=== PATIENT | male | born 1985 | race Caucasian/White ===

== ENCOUNTER 2017-04-20 13:01 | Emergency (ER) | payer MEDICARE | END 2017-04-20 15:27 | disposition home or self-care (01) | LOC: D.ER 13:01 | DX: S61.441A Puncture wound with foreign body of right hand, initial encounter (principal); X58.XXXA Exposure to other specified factors, initial encounter; Y93.89 Activity, other specified; Y92.019 Unspecified place in single-family (private) house as the place of occurrence of the external cause; I10 Essential (primary) hypertension; F17.200 Nicotine dependence, unspecified, uncomplicated ==

== ENCOUNTER 2017-04-26 05:04 | Day surgery (SDC) | payer MEDICARE ==
[~2017-04-26] VITALS: Ht 175.3 cm; Wt 74.8 kg
--- NOTE | ~2017-04-26 | OP ---
PATIENT NAME: HENRY HOBBS MEDICAL RECORD: [id number] :85 LOCATION:[facility] ADMISSION DATE: SURGEON: TAMEKA TOUSSAINT DO DATE OF OPERATION: 04/26/2017 PROCEDURE PERFORMED: Foreign body removal from right hand. PREOPERATIVE DIAGNOSIS: Foreign body, right hand. POSTOPERATIVE DIAGNOSIS: Foreign body, right hand. INDICATIONS: Mr. Hobbs is a right hand dominant 31-year-old male who had some glass going to the palm of his right hand, approximately 2 weeks ago. He got some of it out, but the rest was retained. He was seen in the ER this last weekend and then seen in my clinic. He wanted it removed, it has bothered him a lot. 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 X-rays were taken in the ER and the glass was seen on the x-ray. DESCRIPTION OF PROCEDURE: The patient was taken to the operative suite, placed in supine position, given general anesthetic and LMA was placed. A timeout was performed. Everyone was in agreement of the correct side, site and surgery. He was given 2 grams of Ancef preoperatively. Once the time-out was performed, his right hand was prepped and draped in sterile fashion. A small incision was made over where the foreign body was and once this was done, the scissors were made to carefully spread over where it was and while doing this, the piece of glass came out as pressure was placed downward on the palm. An x-ray was taken to confirm that it had been removed wholly and put in a specimen cup. A single 4-0 nylon horizontal mattress stitch was placed over the incision and an Adaptic, 4 x 4's, Kerlix, and a Coban was placed on the hand. The patient was then awakened and taken to recovery in stable condition. Blood loss was minimal. TRANSINT:[id number] Voice Confirmation ID: [id number] DOCUMENT ID: [id number] TAMEKA TOUSSAINT DO CC: [id number] DICTATION DATE: 04/26/17799 SURVEILLANCE MANAGER: 04/26/17932 [facility] 04/26/17 [id number] [place] [address]
[~2017-04-26 05:04] MED LIST: METOPROLOL TART50 MG PO; NORCO 7.5/325 T1 TA1 PO; SEROQUEL300 MG PO
[2017-04-26 05:56] VITALS: BP 111/73; Ht 175.3 cm; Wt 74.8 kg
[2017-04-26] MEDS ORDERED: PERCOCET 5-3251 TAB PO (07:35)
[2017-04-26] MEDS ORDERED: DURICEF500 MG PO (07:35)
--- NOTE | 2017-04-26 08:40 | NUR ---
0815-RECD TO ROOM FROM PACU. ALERT. IV PATENT. RESP WITH EASE. JARETH WRAP TO R HAND DRY AND INTACT. 0830-FULL LIQUIDS SERVED.
--- NOTE | 2017-04-26 09:21 | NUR ---
0915-D/C HOME VIA WHEELCHAIR.
== END 2017-04-26 09:15 | disposition home or self-care (01) ==
LOC: D.OPS 05:04 → D.PAN 07:30 → D.OPS 09:15 → D.PAN 09:30
DX: S61.441A Puncture wound with foreign body of right hand, initial encounter (principal); F17.200 Nicotine dependence, unspecified, uncomplicated; I10 Essential (primary) hypertension; B19.20 Unspecified viral hepatitis C without hepatic coma; Z01.812 Encounter for preprocedural laboratory examination